=== PATIENT | female | born 1970 | race Caucasian/White ===

== ENCOUNTER 2018-12-02 13:16 | Emergency (ER) | payer BC ==
[2018-12-02] MEDS: METHYLPREDNISOLONE 125 MG INJ IM (14:16)
[2018-12-02] MEDS: ALBUTEROL 0.083% (NEB) 2.5 MG/3 ML AMP HHN (14:51)
== END 2018-12-02 15:07 | disposition home or self-care (01) ==
LOC: FTE 13:16
DX: J06.9 Acute upper respiratory infection, unspecified (principal); R06.2 Wheezing; F17.210 Nicotine dependence, cigarettes, uncomplicated; R07.89 Other chest pain
CPT/HCPCS: 93005; 94664; 96372; 99284-25